=== PATIENT | female | born 1990 | race Asian ===

== ENCOUNTER 2018-03-06 17:09 | Outpatient (CLI) | payer OTHER ==
[2018-03-06 17:52] LABS: ADD UMIC NO; UR ASCORBIC ACID NEGATIVE (NEGATIVE); UR BILIRUBIN (Dip) NEGATIVE (NEGATIVE); UR BLOOD (Dip) NEGATIVE (NEGATIVE); UR CLARITY CLEAR (CLEAR); UR COLOR YELLOW (YELLOW); UR GLUCOSE (Dip) NEGATIVE (NEGATIVE); UR KETONES (Dip) NEGATIVE (NEGATIVE); UR LEUKOCYTE ESTERASE (Dip) NEGATIVE Leu/ul (NEGATIVE); UR NITRITE (Dip) NEGATIVE (NEGATIVE); UR SPECIFIC GRAVITY (Dip) 1.009 (1.003-1.030); UR TOTAL PROTEIN (Dip) NEGATIVE (NEGATIVE); UR UROBILINOGEN (Dip) NEGATIVE (NEGATIVE)
[2018-03-06] MEDS: ACETAMINOPHEN 500 MG TAB PO (18:33)
== END 2018-03-06 20:07 | disposition home or self-care (01) ==
LOC: OBT 17:09 → L-D 17:10 → OBT 20:07
DX: O26.893 Other specified pregnancy related conditions, third trimester (principal); R10.9 Unspecified abdominal pain; Z3A.29 29 weeks gestation of pregnancy
CPT/HCPCS: 76817; 76818; 81003

== ENCOUNTER 2018-04-16 18:43 | Outpatient (CLI) | payer OTHER | END 2018-04-16 22:15 | disposition home or self-care (01) | LOC: OBT 18:43 → L-D 18:44 → OBT 22:15 | DX: O28.0 Abnormal hematological finding on antenatal screening of mother (principal); O34.219 Maternal care for unspecified type scar from previous cesarean delivery | CPT/HCPCS: 76818 ==

== ENCOUNTER 2018-05-10 00:25 | Inpatient (IN) | payer OTHER ==
[2018-05-10] MEDS: LACTATED RINGER'S 1,000 ML IV ×4 (01:10→22:27)
[2018-05-10] MEDS ORDERED: CARBOPROST 250 MCG INJ IM ×2 (02:00→12:30)
[2018-05-10] MEDS ORDERED: MISOPROSTOL 200 MCG TAB PR ×2 (02:00→12:30)
[2018-05-10] MEDS ORDERED: METHYLERGONOVINE 0.2 MG INJ IM ×2 (02:00→12:30)
[2018-05-10] MEDS ORDERED: OXYTOCIN 30 UNITS/LR 500 ML IV ×4 (02:00→12:30)
[2018-05-10 03:32] LABS: ADD MAN DIFF? NO
[2018-05-10 03:35] LABS: BASOPHILS % 0.3 % (0.0-2.0); EOSINOPHILS # 0.1 10^3/ul (0.0-0.5); EOSINOPHILS % 1.2 % (0.0-7.0); HEMATOCRIT 28.9 % (37.0-47.0); LYMPHOCYTES # 1.6 10^3/ul (0.8-2.9); LYMPHOCYTES % 16.3 % (15.0-51.0); MEAN CORPUSCULAR HEMOGLOBIN 22.4 pg (29.0-33.0); MEAN CORPUSCULAR HGB CONC 31.1 g/dl (32.0-37.0); MEAN CORPUSCULAR VOLUME 71.9 fl (82.0-101.0); MEAN PLATELET VOLUME 10.8 fl (7.4-10.4); MONOCYTE # 0.6 10^3/ul (0.3-0.9); MONOCYTES % 5.8 % (0.0-11.0); NEUTROPHIL # 7.6 10^3/ul (1.6-7.5); NEUTROPHILS % 75.8 % (39.0-77.0); NUCLEATED RED BLOOD CELLS% 0.2 /100WBC (0.0-0.0); PLATELET COUNT 234 10^3/UL (140-415); RED BLOOD COUNT 4.02 10^6/ul (4.20-5.40); RED CELL DISTRIBUTION WIDTH 17.1 % (11.5-14.5)
[2018-05-10 03:35] LABS: WHITE BLOOD COUNT 10.1 10^3/ul (4.8-10.8)
[2018-05-10 03:55] LABS: INR 0.95; PARTIAL THROMBOPLASTIN TIME 27.8 Sec (25.0-35.0); PROTIME 12.8 Sec (11.9-14.9)
[2018-05-10 04:43] LABS: HEPATITIS B SURFACE ANTIGEN NEGATIVE (NEGATIVE)
[2018-05-10] MEDS: TERBUTALINE 1 MG/ML INJ SC (06:00)
[2018-05-10] MEDS ORDERED: CEFAZOLIN 2 GM/50 ML (PMX) 50 ML IVPB (07:18)
[2018-05-10] MEDS ORDERED: morphine SULFATE/PF (10 MG/10 ML) INJ (07:30)
[2018-05-10] MEDS ORDERED: BUPIVACAINE 0.75%/DEXT (SPINAL) 2 ML INJ (07:30)
[2018-05-10] MEDS ORDERED: FENTAnyl 50 MCG/ML VIAL (07:30)
[2018-05-10] MEDS ORDERED: ONDANSETRON 4 MG INJ (07:50)
[2018-05-10] MEDS ORDERED: DEXAMETHASONE 4 MG/ML 1 ML INJ (07:50)
[2018-05-10] MEDS ORDERED: DIPHENHYDRAMINE 50 MG INJ IV (09:30)
[2018-05-10] MEDS ORDERED: HYDROmorphONE 0.5 MG/0.5 ML SYG IV ×2 (09:30)
[2018-05-10] MEDS ORDERED: ZOLPIDEM 5 MG TAB PO ×2 (09:30→12:30)
[2018-05-10] MEDS ORDERED: NALOXONE (0.4 MG/ML) INJ IV (09:30)
[2018-05-10] MEDS: ONDANSETRON 4 MG INJ IV (11:15)
[2018-05-10] MEDS ORDERED: ONDANSETRON 4 MG INJ IV (12:30)
[2018-05-10 16:05] LABS: RAPID PLASMA REAGIN NONREACTIVE (NR)
[2018-05-11] MEDS: DIPHENHYDRAMINE 50 MG INJ IV (02:17)
[2018-05-11] MEDS: KETOROLAC 30 MG INJ IV (05:55)
[2018-05-11] MEDS: LANOLIN 7 GM TUBE TOP (05:55)
[2018-05-11 09:19] LABS: ADD MAN DIFF? NO
[2018-05-11 09:30] LABS: BASOPHILS % 0.2 % (0.0-2.0); EOSINOPHILS % 0.2 % (0.0-7.0); HEMATOCRIT 27.8 % (37.0-47.0); HEMOGLOBIN 8.5 g/dl (12.0-16.0); IMMATURE GRANS #M 0.11 10^3/ul; IMMATURE GRANS % (M) 0.8 %; LYMPHOCYTES # 2.5 10^3/ul (0.8-2.9); LYMPHOCYTES % 18.6 % (15.0-51.0); MEAN CORPUSCULAR HEMOGLOBIN 22.2 pg (29.0-33.0); MEAN CORPUSCULAR HGB CONC 30.6 g/dl (32.0-37.0); MEAN CORPUSCULAR VOLUME 72.6 fl (82.0-101.0); MEAN PLATELET VOLUME 11.5 fl (7.4-10.4); MONOCYTE # 0.7 10^3/ul (0.3-0.9); NEUTROPHILS % 75.2 % (39.0-77.0); PLATELET COUNT 255 10^3/UL (140-415); RED BLOOD COUNT 3.83 10^6/ul (4.20-5.40); RED CELL DISTRIBUTION WIDTH 17.4 % (11.5-14.5)
[2018-05-11 09:30] LABS: WHITE BLOOD COUNT 13.3 10^3/ul (4.8-10.8)
[2018-05-11] MEDS ORDERED: OXYCODONE/ACETAMINOPHEN (5/325) TAB PO ×2 (09:30)
[2018-05-11] MEDS: SENNA/DOCUSATE NA (8.6MG/50MG) TAB PO ×2 (09:51→20:35)
[2018-05-11] MEDS: MAGNESIUM HYDROXIDE 30ML CUP PO (10:34)
[2018-05-11] MEDS: IBUPROFEN 600 MG TAB PO ×2 (12:04→18:01)
[2018-05-11] MEDS: LACTATED RINGER'S 1,000 ML IV (12:05)
[2018-05-12] MEDS: IBUPROFEN 600 MG TAB PO ×3 (00:17→11:17)
[2018-05-12] MEDS: SENNA/DOCUSATE NA (8.6MG/50MG) TAB PO (08:51)
[2018-05-12] MEDS: LANOLIN 7 GM TUBE TOP (11:17)
[2018-05-12] MEDS: DIPHTH/TET/ACEL PERTUSS (ADULT) 0.5 ML VIAL IM* (11:19)
== END 2018-05-12 14:49 | disposition home or self-care (01) | DRG 766 ==
LOC: OBT 00:25 → L-D 00:25 → OBT 00:42 → L-D 00:42 → PP1 12:15
PROVIDERS: Obstetrics & Gynecology
PROC: 10D00Z1 Extraction of Products of Conception, Low, Open Approach (ICD-10-PCS; principal; 2018-05-10)
DX: O34.211 Maternal care for low transverse scar from previous cesarean delivery (principal); O99.02 Anemia complicating childbirth; Z3A.39 39 weeks gestation of pregnancy; Z37.0 Single live birth
CPT/HCPCS: 85025; 85610; 85730; 86592; 86850; 86900; 86901; 87340; 90715; 99464